=== PATIENT | male | born 1995 | race Caucasian/White ===

== ENCOUNTER 2020-12-26 10:50 | Emergency (ER) | payer OTHER ==
[~2020-12-26] VITALS: Ht 182.9 cm; Wt 147.9 kg
[~2020-12-26 10:50] MED LIST: HYDACE10B
[2020-12-26] MEDS ORDERED: AMOCLA875 PO (11:32)
[2020-12-26] MEDS ORDERED: VALA500 (11:32)
[2020-12-26] MEDS ORDERED: PRED20 (11:32)
[2020-12-26 13:05] LABS: BASOPHILS ABSOLUTE AUTO 0.04 K/mm3 (0.00-0.23); BASOPHILS PERCENT AUTO 0 % (0-2); EOSINOPHILS ABSOLUTE AUTO 0.01 K/mm3 (0.00-0.68); EOSINOPHILS PERCENT AUTO 0 % (0-6); Hematocrit 45.5 % (37.0-53.0); Hemoglobin 15.8 g/dL (13.5-17.5); IMMATURE GRAN ABSOLUTE AUTO 0.06 K/mm3 (0.00-0.10); IMMATURE GRAN PERCENT AUTO 1 % (0-1); LYMPHOCYTES ABSOLUTE AUTO 1.47 K/mm3 (0.84-5.20); LYMPHOCYTES PERCENT AUTO 16 % (21-46); MONOCYTES ABSOLUTE AUTO 0.29 K/mm3 (0.16-1.47); MONOCYTES PERCENT AUTO 3 % (4-13); Mean Corpuscular HGB 29.6 pg (26.0-34.0); Mean Corpuscular HGB Conc 34.7 g/dL (31.5-36.5); Mean Corpuscular Volume 85 fL (80-100); Mean Platelet Volume 10.1 fL (9.1-12.4); NEUTROPHILS ABSOLUTE AUTO 7.17 K/mm3 (1.96-9.15); NEUTROPHILS PERCENT AUTO 79 % (41-73); Platelet Count 274 K/mm3 (150-400); RDW Coefficient Variation 12.7 % (11.7-14.2); RDW Standard Deviation 38.5 fL (35.1-46.3); Red Blood Cell Count 5.34 M/mm3 (4.30-5.90); White Blood Cell Count 9.04 K/mm3 (4.00-11.30)
[2020-12-26 14:24] LABS: Alanine Aminotransfer (ALT/SGP 86 U/L (12-78); Alk Phos 61 U/L (50-136); Anion Gap 2 mmol/L (6-16); Aspartate Aminotrans (AST/SGOT 41 U/L (12-37); Bilirubin, Total 1.6 mg/dL (0.1-1.0); Blood Urea Nitrogen 12 mg/dL (8-24); Bun/Creatinine Ratio 17.7 (12.0-20.0); CO2, Blood 26 mmol/L (21-32); Calcium, Blood 9.2 mg/dL (8.5-10.1); Chloride, Blood 109 mmol/L (98-108); Creatinine, Blood 0.68 mg/dL (0.60-1.20); Glomerular Filtration Rate >60 (60-); Glucose, Blood 98 mg/dL (70-99); Potassium, Blood 4.1 mmol/L (3.5-5.5); Sodium, Blood 137 mmol/L (136-145)
[2020-12-26 16:38] LABS: Appearance, CSF Clear (Clear); Color, CSF No Color (No Color)
[2020-12-26 16:50] LABS: Automated CSF WBC Count 0.009 K/mm3 (0-5); WBC Count, CSF 9 /mm3 (0-5)
[2020-12-26 17:34] LABS: RBC Count, CSF 52 /mm3 (0-0)
[2020-12-26 17:54] LABS: Lymphocytes, CSF 66 % (40-80); Monocytes, CSF 34 % (15-45)
[2020-12-28 16:07] LABS: Test Name IL2R CSF 99483
== END 2020-12-26 19:31 | disposition home or self-care (01) ==
LOC: ER 10:50
PROVIDERS: Family Medicine; Psychiatry & Neurology Neurology
DX: A69.20 Lyme disease, unspecified (principal); G61.0 Guillain-Barre syndrome; D86.89 Sarcoidosis of other sites
CPT/HCPCS: 62270; 70450; 70553; 77003; 80053; 82945; 83520; 83916; 84157; 85025; 86140; 86618; 87070; 87205; 88184; 88185; 89051; 99284-25; A9270; A9579